=== PATIENT | female | born 1970 | race Caucasian/White ===

== ENCOUNTER 2017-07-16 23:07 | Emergency (ER) | payer MEDICAID ==
[2017-07-16 23:15] VITALS: BP 149/101; PULSE 99; RESP 20; TEMP 97.9; O2SAT 97
== END 2017-07-16 23:42 | disposition left against medical advice (07) ==
DX: Z53.21 Procedure and treatment not carried out due to patient leaving prior to being seen by health care provider (principal)

== ENCOUNTER 2017-08-23 10:34 | Emergency (ER) | payer MEDICAID ==
[2017-08-23 10:40] VITALS: BP 154/96; PULSE 78; RESP 16; TEMP 97.5; O2SAT 98
--- NOTE | 2017-08-23 11:28 | EDPHY ---
General Narrative: CHIEF COMPLAINT: Bruising to left 3rd finger HISTORY OF PRESENT ILLNESS: Patient complains of bruising to left 3rd finger. She 1st noted this morning. She thinks she may have injured it last night while grabbing something out of her purse. Minimal pain with this. No pain with flexion of the fingers but only with palpation of the area. The bruising is primarily at the base of the left middle finger, palmar side. This does tract to the back of hand. No numbness. No tingling. No weakness. No injury elsewhere. She does have history of osteoporosis but no history of bleeding disorders. No bleeding from any other site. No bruising anywhere. No other associated complaints or modifying factors. ESTABLISHED ORTHOPEDIST: None REVIEW OF SYSTEMS: Ten systems reviewed and are negative unless otherwise noted in the HPI PAST MEDICAL HISTORY: Significant for Osteoporosis PAST SURGICAL HISTORY: No recent surgeries SOCIAL HISTORY: Nonsmoker. Works at the [employer] as a teacher FAMILY HISTORY: EXAMINATION General Appearance: Alert, no distress Cardiovascular: Symmetric radial pulses 2+ Brisk cap refill Neurological: A&O, light sensation to the back of the hand is symmetric. Interossei strength symmetric. No wrist drop Skin: Warm and dry, no rash. Mild ecchymosis at the base of the left middle finger palmar side with tracking to the dorsum and distal 3rd metacarpal. No warmth cyanosis or pallor. Extremities: No bony tenderness. No crepitus. Full flexion extension of the fingers of the left hand without deficit Psychiatric: Mood and affect normal DIFFERENTIAL DIAGNOSES: Including but not limited to hematoma, capillary bed injury, contusion, ecchymosis, fracture MDM: 11:25 a.m. Mild bruising to the left middle finger proximal phalanx. Minimal tenderness to palpation. Possible occult fracture, but the patient is declining x-ray. She is neurovascular intact distally with no signs of vascular compromise, cold extremity or basal spasm. She has full range of motion without deficit. Will place her in a splint prophylactically in lieu of the x-ray. Recommend follow up with her established physician or Orthopedics for definitive care. Recommend ED precautions for any worsening symptoms, numbness, tingling or cold sensation. She is comfortable this plan and discharged home stable condition, neurovascular intact SUPERVISION: This patient was independently evaluated without direct involvement of or examination by the attending physician. ED Precautions: Worsening pain. Erythema, edema, cyanosis, pallor, paresthesia or anesthesia. - History Smoking Status: Former smoker - Objective Vital Signs: Initial Vital Signs Temperature (C) 97.5 F 08/23/17 10:37 Heart Rate 78 08/23/17 10:37 Respiratory Rate 16 08/23/17 10:37 Blood Pressure 154/96 H 08/23/17 10:37 O2 Sat (%) 98 08/23/17 10:37 O2 Delivery Mode Room Air Allergies/Adverse Reactions: acetaminophen [From Tylenol] Allergy (Mild, Verified 08/23/17 10:36) GI upset ibuprofen Allergy (Mild, Verified 08/23/17 10:36) GI upset cefprozil [From Cefzil] Allergy (Verified 08/23/17 10:36) latex [Latex] Allergy (Verified 08/23/17 10:36) Rash Home Medications: Medication Instructions Recorded NK [No Known Home Meds] 06/11/14 Departure - Departure Disposition: Home, Routine, Self-Care Clinical Impression: Traumatic ecchymosis of finger Qualifiers: Encounter type: initial encounter Qualified Code(s): S60.00XA - Contusion of unspecified finger without damage to nail, initial encounter Condition: Good Instructions: Ecchymosis (ED) Additional Instructions: 1. Finger splint as provided 2. Ice and elevation as needed 3. ED precautions for worsening bruising, pain, numbness, tingling or cold sensation 4. Follow up with primary care physician Referrals: NONE *PRIMARY CARE P,. [Primary Care Provider] - As per Instructions Helio Stock MD [Medical Doctor] - As per Instructions
== END 2017-08-23 11:35 | disposition home or self-care (01) ==
DX: S60.032A Contusion of left middle finger without damage to nail, initial encounter (principal); Z87.891 Personal history of nicotine dependence; Z91.040 Latex allergy status; X58.XXXA Exposure to other specified factors, initial encounter; Y99.8 Other external cause status
CPT/HCPCS: L3925

== ENCOUNTER 2018-03-01 01:16 | Emergency (ER) | payer SELFPAY ==
--- NOTE | 2018-03-01 01:34 | EDPHY ---
H & P Stated Complaint: L ANKLE INJ, QUIRINO KNEE INJ/FALL Source: Patient - Personal History LMP (Females 10-55): Unknown Current Tetanus Diphtheria and Acellular Pertussis (TDAP): Unsure Tetanus Vaccine Date: 2000 - Medical/Surgical History Hx Asthma: No Hx Chronic Respiratory Disease: No Hx Diabetes: No Hx Cardiac Disease: No Hx Renal Disease: No Hx Cirrhosis: No Hx Alcoholism: No Hx HIV/AIDS: No Hx Splenectomy or Spleen Trauma: No Other PMH: anemia, closed head injury. cervical ablation - Social History Smoking Status: Former smoker Time Seen by Provider: 03/01/18 01:34 HPI/ROS: HPI CHIEF COMPLAINT: Bilateral knee pain, left ankle pain. HISTORY OF PRESENT ILLNESS: 47-year-old female, denies significant medical history she presents emergency room bilateral knee pain and left ankle pain. Patient states this evening she was outside taking photographs of the moving. She hopped up on electrical box to take other pictures when she was coming off the electrical box she fell onto a stair. She landed on her left ankle and bilateral knees. She sustained abrasion to her left knee. Soft tissue injury to right knee, and lateral medial malleolar swelling to the left ankle. Denies head strike. Denies neck pain chest pain or shortness of breath. Saw also has an abrasion and bruising to her left forearm. She does states she thinks her tetanus shot is up-to-date. Past Medical History: Denies significant medical history Past Surgical History: Denies significant surgical history Social History: Denies daily use of drugs alcohol tobacco. Did have 1 glass of wine tonight. Family History: Noncontributory ROS REVIEW OF SYSTEMS: A comprehensive 10 point review of systems is otherwise negative aside from elements mentioned in the history of present illness. Exam Constitutional appears well nontoxic no acute distress triage nursing summary reviewed, vital signs reviewed, awake/alert. Eyes normal conjunctivae and sclera, EOMI, PERRLA. HENT normal inspection, atraumatic, moist mucus membranes, no epistaxis, neck supple/ no meningismus, no raccoon eyes. Respiratory clear to auscultation bilaterally, normal breath sounds, no respiratory distress, no wheezing. Cardiovascular rate normal, regular rhythm, no murmur, no edema, distal pulses normal. Gastrointestinal soft, non-tender, no rebound, no guarding, normal bowel sounds, no distension, no pulsatile mass. Genitourinary no CVA tenderness. Musculoskeletal bilateral knee swelling mild present both knees over the patellas, abrasion over the left anterior patella, however full range of motion of both knees, full flexion extension, distally neurovascular and had good distal pulses. Left lower extremity; swelling noted over both malleolus and tender palpation. Midfoot stable. Good distal pulse. Good cap refill, swelling over the ankle. Additionally left upper extremity: Small abrasion present in her left forearm, and ecchymosis hematoma present. No significant tenderness to palpation of the elbow. Full range of motion. Neurovascular intact. no midline vertebral tenderness, full range of motion, no calf swelling, no tenderness of extremities, no meningismus, good pulses, neurovascularly intact. Skin multiple abrasions see above. Neurologic awake, alert and oriented x 3, AAOx3, moves all 4 extremities equally, motor intact, sensory intact, CN II-XII intact, normal cerebellar, normal vision, normal speech. Psychiatric normal mood/affect. Heme/Lymph/Immune no lymphadenopathy. Differential Diagnosis: Includes but is not limited to in a particular order multiple soft tissue injuries, multiple abrasions, multiple contusions, left arm hematoma, fractures of the patella, left ankle fracture. Left ankle sprain. Medical Decision Making: Plan for this patient x-ray bilateral knees, x-ray left ankle, patient declined tetanus update here in emergency room. Will give a dose of Motrin 800 mg, additionally ice pack. Re-evaluate. Clean her abrasions and wounds. Re-evaluation: X-ray of the left knee negative for acute traumatic injury X-ray the right knee negative for acute traumatic X-ray of the left ankle: Soft tissue swelling consistent with a sprain. No visible fracture. Image interpreted by myself. Given the amount of swelling the patient be splinted. Will need to follow up with Orthopedics for splint takedown re-evaluation. Patient been placed in a posterior short-leg with stirrup for comfort of these ankle sprain. Patient understands follow-up with Orthopedics on outpatient basis call for follow-up appointment. Recommend icing of the ankle, elevation, anti-inflammatory pain medicine and close follow up with Orthopedics Return emergency room there is worsening pain questions or concerns. She understands she has a ankle sprain will be immobilized with splint and splint takedown and orthopedics possible repeat imaging. I did not visualize an acute fracture however she does have significant left-sided ankle swelling and pain and appears to be a high-grade sprain. (Bob Byrd) Constitutional: Initial Vital Signs Temperature (C) 36.4 C 03/01/18 01:19 Heart Rate 80 03/01/18 01:19 Respiratory Rate 16 03/01/18 01:19 Blood Pressure 141/107 H 03/01/18 01:19 O2 Sat (%) 95 03/01/18 01:19 O2 Delivery Mode Room Air Allergies/Adverse Reactions: acetaminophen [From Tylenol] Allergy (Mild, Verified 08/23/17 10:36) GI upset ibuprofen Allergy (Mild, Verified 08/23/17 10:36) GI upset cefprozil [From Cefzil] Allergy (Verified 08/23/17 10:36) latex [Latex] Allergy (Verified 08/23/17 10:36) Rash Home Medications: Medication Instructions Recorded NK [No Known Home Meds] 06/11/14 Medical Decision Making - Diagnostics Imaging Results: Imaging Impressions Ankle X-Ray 03/01/18 01:38 Impression: 1. Faint avulsion type fracture distal tip of the left fibula with adjacent soft tissue swelling. These findings were discussed by telephone with Dr. Mario Frederick at 0815 hrs. Knee X-Ray 03/01/18 01:38 Impression: 1. No acute osseous abnormality seen associated with the right or left knee. 2. Gaqc-bz-nowlmoql degenerative changes medial compartment left knee joint and mild on the right with associated medial marginal osteophytes. 3. Degenerative changes at the patellofemoral joint [id number] on the left and moderate on the right with lateral subluxation of the patella bilaterally. 4. Possible calcifications in a Arana's cyst posterior medial aspect of the left knee. Knee X-Ray 03/01/18 01:39 Impression: 1. No acute osseous abnormality seen associated with the right or left knee. 2. Ezfv-ml-jcwnxfrf degenerative changes medial compartment left knee joint and mild on the right with associated medial marginal osteophytes. 3. Degenerative changes at the patellofemoral joint [id number] on the left and moderate on the right with lateral subluxation of the patella bilaterally. 4. Possible calcifications in a Arana's cyst posterior medial aspect of the left knee. ED Course/Re-evaluation: X-ray of the ankle from last night was reviewed by me with Dr. Anderson for Radiology. He feels there is a small avulsion chip off the distal fibula laterally. In review of the chart it does not appear that this changes treatment whatsoever. At 2:30 a.m. In the afternoon I called the patient on her cell phone and left a message as well as our call back information. (Mario Frederick) - Data Points Medications Given: Discontinued Medications Hydrocodone Bitart/Acetaminophen (Cushman 5/325) 1 tab PO EDNOW ONE Stop: 03/01/18 01:48 Last Admin: 03/01/18 02:00 Dose: 1 tab Hydrocodone Bitart/Acetaminophen (Cushman 5/325mg Prepack#6) 1 btl TAKEHOME EDNOW ONE Stop: 03/01/18 02:47 Last Admin: 03/01/18 02:58 Dose: 1 btl Diphtheria/Tetanus/Acell Pertussis (Boostrix) 0.5 ml IM .ONCE ONE Stop: 03/01/18 01:48 Last Admin: 03/01/18 01:56 Dose: 0.5 ml Departure - Departure Disposition: Home, Routine, Self-Care Clinical Impression: Multiple contusions, Avulsion fracture of distal end of fibula Knee abrasion Qualifiers: Encounter type: initial encounter Laterality: unspecified laterality Qualified Code(s): S80.219A - Abrasion, unspecified knee, initial encounter Condition: Good Instructions: Ankle Sprain (ED), Contusion in Adults (ED), Abrasion (ED), Hematoma (ED) Additional Instructions: 1. Anti-inflammatory pain medicine like Tylenol and Motrin Referrals: Alla Shafer PA [Physician Market Development Manager] - As per Instructions NONE *PRIMARY CARE P,. [Primary Care Provider] - As per Instructions Clifford Mayorga MD [Medical Doctor] - As per Instructions
[2018-03-01] MEDS ORDERED: TDAP ADULT 0.5 ML INJ (BOOSTRIX) IM ONE (01:47)
[2018-03-01] MEDS ORDERED: HYDROCODONE/APAP 5/325 TAB PO ONE (01:47)
[2018-03-01] MEDS ORDERED: HYDROCOD/APAP 5/325 PREPACK#6 BTL TAKEHOME ONE (02:46)
[2018-03-01 03:35] VITALS: BP 140/97
== END 2018-03-01 03:47 | disposition home or self-care (01) ==
DX: S82.832A Other fracture of upper and lower end of left fibula, initial encounter for closed fracture (principal); S80.212A Abrasion, left knee, initial encounter; S50.812A Abrasion of left forearm, initial encounter; S50.12XA Contusion of left forearm, initial encounter; Z91.040 Latex allergy status; Z87.891 Personal history of nicotine dependence; Z23 Encounter for immunization; W10.8XXA Fall (on) (from) other stairs and steps, initial encounter; Y92.89 Other specified places as the place of occurrence of the external cause; Y99.8 Other external cause status; Y93.89 Activity, other specified

== ENCOUNTER 2018-08-15 15:18 | Emergency (ER) | payer MEDICAID ==
[2018-08-15] MEDS ORDERED: NS 1,000 ML IV ONE (15:29)
[2018-08-15 15:47] LABS: PLATELET COUNT 246 10^3/uL (150-400)
--- NOTE | 2018-08-15 16:23 | EDPHY ---
H & P Time Seen by Provider: 08/15/18 15:21 HPI/ROS: CHIEF COMPLAINT: Left-sided chest pain HISTORY OF PRESENT ILLNESS: This is a 47-year-old female who presents to the emergency department reporting that while she was driving her car she developed an abrupt onset of left-sided chest discomfort, and discomfort in her her axilla. These symptoms caused her to be dizzy as well as somewhat short of breath. Patient's history is vague. There is a smell alcohol on her breath which is making the history somewhat difficult. Patient reports she called nurse advice line but was brought in by EMS. Denies any cardiac history. No history of hypertension, high cholesterol, diabetes. No history of coronary artery disease. Patient reports occasional alcohol use, nonsmoker. No marijuana use. Denies recent fevers or chills, cold symptoms, nausea, vomiting, diarrhea. REVIEW OF SYSTEMS: A comprehensive 10 system review of systems was reviewed and is otherwise negative aside from elements mentioned in the history of present illness and medical decision making. PAST MEDICAL HISTORY: Patient denies. SOCIAL HISTORY: Former smoker. VITAL SIGNS: see nurse's notes. GENERAL: Well-developed, well-nourished, in mild discomfort. No respiratory distress. HEENT: Atraumatic. Eyes: No injection or icterus. Oropharynx: No erythema , no injection, no swelling. Neck: No JVD, no bruits, supple with no adenopathy. LUNGS: Clear to auscultation bilaterally, no wheezes, rhonchi or rales. CHEST: No rash, no crepitus, tenderness to palpation the left sternal border. CARDIAC: Regular rate and rhythm, no murmurs, no rubs, no gallops. ABDOMEN: Soft, nontender, nondistended, bowel sounds normal. BACK: No CVA tenderness. EXTREMITIES: No trauma. No clubbing, cyanosis or edema. Range of motion is normal throughout. NEURO: Alert and oriented , grossly nonfocal. SKIN: No diaphoresis, warm and dry, no rash. Smoking Status: Former smoker Constitutional: Initial Vital Signs Temperature (C) 37 C 08/15/18 15:25 Heart Rate 87 08/15/18 15:25 Respiratory Rate 16 08/15/18 15:25 Blood Pressure 149/91 H 08/15/18 15:25 O2 Sat (%) 97 08/15/18 15:25 O2 Delivery Mode Room Air Allergies/Adverse Reactions: acetaminophen [From Tylenol] Allergy (Mild, Verified 08/23/17 10:36) GI upset ibuprofen Allergy (Mild, Verified 08/23/17 10:36) GI upset cefprozil [From Cefzil] Allergy (Verified 08/23/17 10:36) latex [Latex] Allergy (Verified 08/23/17 10:36) Rash Home Medications: Medication Instructions Recorded NK [No Known Home Meds] 06/11/14 Medical Decision Making - Diagnostics EKG Interpretation: 12-LEAD EKG: Please see the full report in [facility]. My interpretation: Sinus rhythm, no ischemic changes Imaging Results: Xray: Chest x-ray was obtained. I viewed the images myself on the PACS system. My interpretation of the images is: Normal. The radiology interpretation is: Normal. I discussed the results with the patient. Imaging: I viewed and interpreted images myself ED Course/Re-evaluation: 47-year-old female presents emergency department reporting an abrupt onset of chest discomfort with radiation into her axilla. Patient has a smell of alcohol on her breath. She has no cardiac risk factors that I can identify being a former smoker. Evaluation emergency department included an EKG which was nonischemic, bedside troponin which was negative, D-dimer which was negative, chest x-ray revealing no acute processes, CBC and electrolytes which were largely unremarkable, lipase which was slightly elevated. Patient did have an alcohol level of 209. She was observed in the emergency department. She lidocaine patch placed on the chest wall which improved her discomfort. She feels comfortable being discharged to her , who was sober. She will follow up with her primary care physician for further evaluation. I believe the patient is at low risk for acute coronary syndrome given her lack of risk factors, anterior chest wall discomfort to palpation, the normal EKG and negative troponin. Differential Diagnosis: After history and physical examination, the differential for chest pain was considered, including but not limited to, myocardial ischemia, acute coronary syndrome, pulmonary embolus, chest wall pain, pleural inflammation and pulmonary infectious causes. - Data Points Laboratory Results: Laboratory Results 08/15/18 15:20 08/15/18 15:20 Medications Given: Discontinued Medications Sodium Chloride (Ns) 1,000 mls @ 0 mls/hr IV EDNOW ONE; Wide Open PRN Reason: Protocol Stop: 08/15/18 15:30 Last Admin: 08/15/18 16:01 Dose: 1,000 mls Miscellaneous Medication (Icy Hot Lidocaine/Menthol 4%/1% Patch) 1 patch TD EDNOW ONE Stop: 08/15/18 17:04 Last Admin: 08/15/18 17:13 Dose: 1 patch Point of Care Test Results: Chemistry 08/15/18 15:36 POC Troponin I 0.00 ng/mL ng/mL (0.00-0.08) Departure - Departure Disposition: Home, Routine, Self-Care Clinical Impression: Chest wall pain Chest pain Qualifiers: Chest pain type: unspecified Qualified Code(s): R07.9 - Chest pain, unspecified Alcohol intoxication Qualifiers: Complication of substance-induced condition: uncomplicated Qualified Code(s): F10.920 - Alcohol use, unspecified with intoxication, uncomplicated Condition: Good Instructions: Chest Pain (DC), Alcohol Intoxication (ED), Chest Wall Pain (ED) Additional Instructions: No definitive cause of your chest discomfort and dizziness has been identified. You been given a lidocaine patch to use as needed for the chest wall pain. Please avoid drinking alcohol in excessive quantities in the future. Please follow up with your primary care physician if you continued to have significant chest discomfort, developed nausea, vomiting, palpitations, fainting , or other concerns. Referrals: Alla Shafer PA [Primary Care Provider] - As per Instructions
[2018-08-15] MEDS ORDERED: LIDOCAINE 4%/MENTHOL 1% PATCH TD ONE (17:03)
[2018-08-15 17:48] VITALS: BP 135/90
[2018-08-15] MEDS ORDERED: PATCH REMOVAL 1 EA PATCH TD SCH (21:00)
--- NOTE | 2018-08-17 22:47 | CPEKG ---
Test Reason : OPEN Blood Pressure : / mmHG Vent. Rate : 076 BPM Atrial Rate : 074 BPM P-R Int : 147 ms QRS Dur : 072 ms QT Int : 377 ms P-R-T Axes : 056 003 034 degrees QTc Int : 424 ms Sinus rhythm Confirmed by Melinda Fraire ([id number]) on 08/17/2018 10:46:24 PM Referred By: Confirmed By:Melinda Fraire
== END 2018-08-15 17:48 | disposition home or self-care (01) ==
LOC: EDUNIT#
DX: R07.89 Other chest pain (principal); F10.920 Alcohol use, unspecified with intoxication, uncomplicated; Z87.891 Personal history of nicotine dependence
CPT/HCPCS: 84484-ER; G0480

== ENCOUNTER 2018-10-31 13:42 | Emergency (ER) | payer MEDICAID ==
--- NOTE | 2018-10-31 14:40 | EDPHY ---
H & P [facility] Time Seen by Provider: 10/31/18 14:20 HPI/ROS: CHIEF COMPLAINT: Head injury, neck pain HISTORY OF PRESENT ILLNESS: 48-year-old female presents with a headache and neck pain. She slipped and fell just prior to arrival and struck her head on a hard floor. Immediate onset of severe headache 8/10, associated with loss of consciousness for several seconds and difficulty concentrating. Gradually increasing lower neck pain. Has not taken uwjd-syk-ksjchha pain medications. No other injuries. REVIEW OF SYSTEMS: complete 10 point ROS reviewed and is negative except for the noted elements in the HPI - Personal History LMP (Females 10-55): Hysterectomy Current Tetanus/Diphtheria Vaccine: Yes Tetanus Vaccine Date: 2000 - Medical/Surgical History Hx Asthma: No Hx Chronic Respiratory Disease: No Hx Diabetes: No Hx Cardiac Disease: No Hx Renal Disease: No Hx Cirrhosis: No Hx Alcoholism: No Hx HIV/AIDS: No Hx Splenectomy or Spleen Trauma: No Other PMH: anemia, closed head injury. cervical ablation - Social History Smoking Status: Former smoker - Physical Exam Exam: General Appearance: Alert, no distress Head: Tenderness left temporal area, no swelling Eyes: No conjunctival erythema, PERRLA, EOMI ENT, Mouth: No hemotympanum, no oral trauma, no bony tenderness Neck: Tender over the lower cervical spine Respiratory: No chest wall tenderness, lungs clear bilaterally Cardiovascular: Regular rate and rhythm Abdomen: Abdomen is soft and nontender Skin: No lacerations, no abrasions Back: No midline T/L/S tenderness Extremities: Pelvis is stable and nontender; no extremity tenderness or deformity, Neurological: A&Ox3, normal motor function, normal sensory exam, cranial nerves intact Psychiatric: Mood and affect normal Constitutional: Initial Vital Signs Temperature (C) 36.4 C 10/31/18 13:51 Heart Rate 66 10/31/18 13:51 Respiratory Rate 16 10/31/18 13:51 Blood Pressure 169/113 H 10/31/18 13:51 O2 Sat (%) 94 10/31/18 13:51 O2 Delivery Mode Room Air Allergies/Adverse Reactions: acetaminophen [From Tylenol] Allergy (Mild, Verified 10/31/18 13:56) GI upset ibuprofen Allergy (Mild, Verified 10/31/18 13:56) GI upset cefprozil [From Cefzil] Allergy (Verified 10/31/18 13:56) latex [Latex] Allergy (Verified 10/31/18 13:56) Rash Home Medications: Medication Instructions Recorded NK [No Known Home Meds] 06/11/14 Medical Decision Making - Diagnostics Imaging Results: Imaging Impressions Cervical Spine CT 10/31/18 14:35 Impression: 1. No acute posttraumatic abnormality identified. If there is persistent pain or neurologic deficit, consider MRI and/or flexion and extension views if clinically indicated. 2. Additional findings as above. Findings discussed with Dr. Deisy Wahl on October 31, [address] 10/31/18 14:35 Impression: No acute intracranial findings. Findings discussed with DEISY WAHL 10/31/2018 at 15:25. Imaging: Discussed imaging studies w/ gre instructor Radiologist ED Course/Re-evaluation: This patient presents with a severe headache after closed head injury. Neurologic exam is normal. CT scan of the brain obtained because of headache severity. Patient was placed in a cervical spine collar and CT Cspine obtained. No other injuries present on exam. CT results discussed with the patient; no evidence of fracture or hemorrhage. Clinical presentation consistent with concussion and neck strain. Concussion instructions given and warning signs discussed. Differential Diagnosis: Differential diagnosis includes though it is not limited to fracture, intracranial hemorrhage, pneumothorax, hemothorax, intra-abdominal hemorrhage. Departure - Departure Disposition: Home, Routine, Self-Care Clinical Impression: Concussion, Cervical strain, acute Condition: Good Instructions: Cervical Strain (ED), Concussion (ED) Additional Instructions: 1. Cognitive rest while symptomatic. Limit screen time (phone, TV, computer) until symptoms resolve. 2. Limit physical activities that could lead to head injury until symptoms have completely resolved. Wear a helmet when skiing and biking. 3. Use Tylenol and ibuprofen as directed on the packaging as needed for pain for the next few days. 4. Follow up with your primary care provider and/or head injury specialist if you have persisting symptoms for more than 10 days. 5. Return to the ED for severe headache, weakness or numbness on one side of your body, or other worsening of condition. Referrals: Alla Shafer PA [Primary Care Provider] - As per Instructions
[2018-10-31 15:52] VITALS: BP 170/107
== END 2018-10-31 15:51 | disposition home or self-care (01) ==
DX: S06.0X1A Concussion with loss of consciousness of 30 minutes or less, initial encounter (principal); S16.1XXA Strain of muscle, fascia and tendon at neck level, initial encounter; W01.198A Fall on same level from slipping, tripping and stumbling with subsequent striking against other object, initial encounter
CPT/HCPCS: L0172

== ENCOUNTER 2018-12-25 12:29 | Emergency (ER) | payer MEDICAID ==
--- NOTE | 2018-12-25 13:22 | EDPHY ---
H & P Time Seen by Provider: 12/25/18 12:55 HPI/ROS: CHIEF COMPLAINT: Chest discomfort HISTORY OF PRESENT ILLNESS: 48-year-old female presents emergency department reporting that 11:00 a.m. This morning she developed relatively abrupt onset of a severe chest discomfort under her left breast extending around to the back. It made her feel lightheaded and dizzy. She felt like she might faint. No nausea or vomiting. Severe discomfort lasted about 45 sec the patient reports an achy discomfort "reverberations" afterwards. Patient has had some intermittent episodes of sharp, worse chest discomfort followed by the achiness in since 11:00 a.m. This morning. Currently without any discomfort. Patient has had several years of intermittent pain in her left breast. Today's discomfort is different as it is deeper and feels like it is under her ribcage. Patient has had some recent seasonal allergies with postnasal drip and coughing. No fevers, chills, sputum production, vomiting, or diarrhea. No urinary complaints, headache, lightheadedness. REVIEW OF SYSTEMS: A comprehensive 10 system review of systems was reviewed and is otherwise negative aside from elements mentioned in the history of present illness and medical decision making. PAST MEDICAL HISTORY: Seasonal allergies, recent close head injury, chronic intermittent chest pain. Patient denies hypertension, hypercholesterolemia, diabetes, or known family history of early coronary artery disease. SOCIAL HISTORY: Nonsmoker, occasional alcohol. VITAL SIGNS: see nurse's notes. GENERAL: Well-developed, well-nourished, in no discomfort. HEENT: Atraumatic. Eyes: No injection or icterus. Oropharynx: No erythema , no injection, no swelling. Neck: No JVD, no bruits, supple with no adenopathy. LUNGS: Clear to auscultation bilaterally, no wheezes, rhonchi or rales. CHEST: Moderate tenderness palpation along the left lateral chest wall, no crepitus, no bruising, no rash noted CARDIAC: Regular rate and rhythm, no murmurs, no rubs, no gallops. ABDOMEN: Soft, nontender, nondistended, bowel sounds normal. BACK: No CVA tenderness. EXTREMITIES: No trauma. No clubbing, cyanosis or edema. Range of motion is normal throughout. NEURO: Alert and oriented , grossly nonfocal. SKIN: No diaphoresis, warm and dry, no rash. Smoking Status: Former smoker Constitutional: Initial Vital Signs Temperature (C) 36.6 C 12/25/18 12:30 Heart Rate 84 12/25/18 12:30 Respiratory Rate 20 12/25/18 12:30 Blood Pressure 167/100 H 12/25/18 12:30 O2 Sat (%) 96 12/25/18 12:30 O2 Delivery Mode Room Air Allergies/Adverse Reactions: acetaminophen [From Tylenol] Allergy (Mild, Verified 10/31/18 13:56) GI upset ibuprofen Allergy (Mild, Verified 10/31/18 13:56) GI upset cefprozil [From Cefzil] Allergy (Verified 10/31/18 13:56) latex [Latex] Allergy (Verified 10/31/18 13:56) Rash Home Medications: Medication Instructions Recorded Aspirin 12/25/18 Medical Decision Making - Diagnostics EKG Interpretation: 12-LEAD EKG: Please see the full report in [facility]. My interpretation: Sinus rhythm Imaging Results: Imaging Impressions Chest X-Ray 12/25/18 13:15 Impression: No acute findings in the chest. Imaging: I viewed and interpreted images myself ED Course/Re-evaluation: Chest pain evaluation included a bedside troponin which was negative, D-dimer which was negative, chest x-ray which was normal, EKG demonstrating normal sinus rhythm with no acute ST or T-wave changes, normal CBC and electrolytes. While in the emergency department the patient had an 2nd episode of chest discomfort which was higher on her chest wall and again associated with a brief , 1-2 minutes in duration severe discomfort. No changes were noted on the monitor during this time period. Ketorolac, 15 mg was administered IV. Patient was reexamined on several occasions. Following the ketorolac she reports improvement in her discomfort. We discussed possible etiologies of the pain including potential for a pleurisy component given the fact that she has been bothered by significant seasonal allergies and has had a cough for several months. I do not believe that the patient ED admission to the hospital for urgent risk stratification of coronary artery disease. Normal labs including troponin and D-dimer. Patient will be discharged home to follow up with her primary care physician. She is comfortable with this plan. Please see the discharge instructions Differential Diagnosis: After history and physical examination, the differential for chest pain was considered, including but not limited to, myocardial ischemia, acute coronary syndrome, pulmonary embolus, chest wall pain, pleural inflammation and pulmonary infectious causes. - Data Points Laboratory Results: Laboratory Results 12/25/18 12:40 12/25/18 12:40 12/25/18 12/25/18 12/25/18 12:48 12:40 12:40 WBC RBC Hgb Hct MCV MCH MCHC RDW Plt Count MPV Neut % (Auto) Lymph % (Auto) [place] % (Auto) Eos % (Auto) Baso % (Auto) Nucleat RBC Rel Count Absolute Neuts (auto) Absolute Lymphs (auto) Absolute Monos (auto) Absolute Eos (auto) Absolute Basos (auto) Absolute Nucleated RBC Immature Gran % Immature Gran # D-Dimer 0.33 ug/mLFEU ug/mLFEU (0.00-0.50) Sodium 139 mEq/L mEq/L (135-145) Potassium 4.5 mEq/L mEq/L (3.5-5.2) Chloride 108 mEq/L mEq/L (97-110) Carbon Dioxide 19 mEq/l L mEq/l (22-31) Anion Gap 12 mEq/L mEq/L (6-14) BUN 16 mg/dL mg/dL (7-23) Creatinine 0.8 mg/dL mg/dL (0.6-1.0) Estimated GFR > 60 Glucose 84 mg/dL mg/dL (70-100) Calcium 9.3 mg/dL mg/dL (8.5-10.4) POC Troponin I 0.00 ng/mL ng/mL (0.00-0.08) 12/25/18 12:40 WBC 4.96 10^3/uL 10^3/uL (3.80-9.50) RBC 4.78 10^6/uL 10^6/uL (4.18-5.33) Hgb 15.8 g/dL g/dL (12.6-16.3) Hct 45.1 % % (38.0-47.0) MCV 94.4 fL fL (81.5-99.8) MCH 33.1 pg pg (27.9-34.1) MCHC 35.0 g/dL g/dL (32.4-36.7) RDW 12.5 % % (11.5-15.2) Plt Count 209 10^3/uL 10^3/uL (150-400) MPV 11.2 fL fL (8.7-11.7) Neut % (Auto) 57.4 % % (39.3-74.2) Lymph % (Auto) 31.7 % % (15.0-45.0) [place] % (Auto) 8.5 % % (4.5-13.0) Eos % (Auto) 1.0 % % (0.6-7.6) Baso % (Auto) 1.2 % % (0.3-1.7) Nucleat RBC Rel Count 0.0 % % (0.0-0.2) Absolute Neuts (auto) 2.85 10^3/uL 10^3/uL (1.70-6.50) Absolute Lymphs (auto) 1.57 10^3/uL 10^3/uL (1.00-3.00) Absolute Monos (auto) 0.42 10^3/uL 10^3/uL (0.30-0.80) Absolute Eos (auto) 0.05 10^3/uL 10^3/uL (0.03-0.40) Absolute Basos (auto) 0.06 10^3/uL 10^3/uL (0.02-0.10) Absolute Nucleated RBC 0.00 10^3/uL 10^3/uL (0-0.01) Immature Gran % 0.2 % % (0.0-1.1) Immature Gran # 0.01 10^3/uL 10^3/uL (0.00-0.10) D-Dimer Sodium Potassium Chloride Carbon Dioxide Anion Gap BUN Creatinine Estimated GFR Glucose Calcium POC Troponin I Medications Given: Discontinued Medications Dexamethasone (Decadron Injection) 10 mg IVP EDNOW ONE Stop: 12/25/18 14:34 Last Admin: 12/25/18 14:36 Dose: 10 mg Ketorolac Tromethamine (Toradol) 15 mg IVP EDNOW ONE Stop: 12/25/18 13:54 Last Admin: 12/25/18 14:09 Dose: 15 mg Ondansetron HCl (Zofran) 4 mg IVP EDNOW ONE Stop: 12/25/18 13:54 Last Admin: 12/25/18 14:09 Dose: 4 mg Point of Care Test Results: Chemistry 12/25/18 12:48 POC Troponin I 0.00 ng/mL ng/mL (0.00-0.08) Departure - Departure Disposition: Home, Routine, Self-Care Clinical Impression: Chest wall pain Chest pain Qualifiers: Chest pain type: chest pain on breathing Qualified Code(s): R07.1 - Chest pain on breathing Condition: Good Instructions: Chest Pain (ED), Pleurisy (ED) Additional Instructions: No definitive cause of your chest discomfort has been found. However, there is no evidence of acute coronary artery disease, pulmonary embolism or blood clot, collapsed lung, pneumonia, pleural effusion, or arrhythmia. Your discomfort may be related to pleurisy with increase in pain with certain movements or breathing. I recommend aspirin as a anti-inflammatory on a regular basis over the next several days. Please follow up with your primary care physician within the next 2-3 days for re-evaluation. You should be seen sooner if your symptoms are worsening. Referrals: NONE *PRIMARY CARE P,. [Primary Care Provider] - As per Instructions Alla Shafer PA [Physician Stencil Maker] - As per Instructions
[2018-12-25 13:27] LABS: PLATELET COUNT 209 10^3/uL (150-400)
[2018-12-25] MEDS ORDERED: KETOROLAC 15 MG/1 ML SDV IVP ONE (13:53)
[2018-12-25] MEDS ORDERED: ONDANSETRON 4 MG/2 ML VIAL IVP ONE (13:53)
[2018-12-25 14:31] VITALS: BP 129/93
[2018-12-25] MEDS ORDERED: DEXAMETHASONE 10 MG/ML VIAL IVP ONE (14:33)
--- NOTE | 2018-12-25 14:49 | CPEKG ---
Test Reason : OPEN Blood Pressure : / mmHG Vent. Rate : 074 BPM Atrial Rate : 074 BPM P-R Int : 154 ms QRS Dur : 079 ms QT Int : 408 ms P-R-T Axes : 060 000 039 degrees QTc Int : 453 ms Sinus rhythm Probable left atrial enlargement Confirmed by Mario Frederick ([id number]) on 12/25/2018 2:48:21 PM Referred By: PHYSICIAN ED Confirmed By:Mario Frederick
== END 2018-12-25 14:52 | disposition home or self-care (01) ==
DX: R07.1 Chest pain on breathing (principal); Z87.891 Personal history of nicotine dependence
CPT/HCPCS: 84484-ER; 96374; J1100; J1885; J2405

== ENCOUNTER 2019-01-07 20:45 | Emergency (ER) | payer MEDICAID | END 2019-01-08 10:03 | disposition home or self-care (01) ==

== ENCOUNTER 2019-01-27 07:58 | Emergency (ER) | payer MEDICAID | END 2019-01-27 08:47 | disposition home or self-care (01) ==

== ENCOUNTER 2019-01-27 14:49 | Emergency (ER) | payer MEDICAID | END 2019-01-27 15:28 | disposition home or self-care (01) ==